=== PATIENT | female | born 1940 | race Caucasian/White ===

== ENCOUNTER 2017-04-01 19:56 | Emergency (ER) | payer MEDICARE ==
[2017-04-01] MEDS ORDERED: Bacitracin Oint 1 GM U/D Packet TOP ONE (20:11)
[2017-04-01 21:14] VITALS: BP 156/96
[2017-04-01] MEDS ORDERED: Coagulation Factor VIIa Recombinant (per MCG) 2 MG Vial IVPUSH ONE (21:20)
--- NOTE | 2017-04-01 21:26 | EDM.PDOC ---
ED HPI GENERAL MEDICAL PROBLEM - General Chief Complaint: Laceration Stated Complaint: FALL VIA [facility] Time Seen by Provider: 04/01/17 20:10 Source of Information: Reports: EMS, Family History Limitations: Reports: Altered Mental Status (Patient has chronic significant dementia) - History of Present Illness INITIAL COMMENTS - FREE TEXT/NARRATIVE: 76-year-old female fell and bumped her head on the floor in the corner of the bathroom at the snf. She has a hematoma with a 3 cm long shallow laceration on the left parietal scalp. No significant loss of consciousness, her daughter who accompanies her says she seems "herself". She is C-collared per protocol which was removed and she does not seem to have neck discomfort. Onset: Sudden Duration: Hour(s): (Within the last hour) Location: Reports: Head Severity: Mild Associated Symptoms: Reports: No Other Symptoms - Related Data Allergies Allergy/AdvReac Type Severity Reaction Status Date / Time No Known Allergies Allergy Verified 04/01/17 20:43 Home Meds: Home Meds Levothyroxine [Sythroid] 100 mcg PO DAILY 09/12/14 [History] Bisacodyl 10 mg RECTAL ASDIRECTED PRN 07/08/16 [History] Magnesium Hydroxide [Milk of Magnesia] 30 ml PO ASDIRECTED PRN 07/08/16 [History ] Mirtazapine [Remeron] 15 mg PO DAILY 07/08/16 [History] Polyethylene Glycol 3350 [Miralax] 17 gm PO DAILY 07/08/16 [History] Fludrocortisone [Florinef] 0.2 mg PO WITHBREAKFAST 04/01/17 [History] Past Medical History Cardiovascular History: Reports: Other (See Below) Other Cardiovascular History: hypotension Gastrointestinal History: Reports: Chronic Constipation Genitourinary History: Reports: UTI, Recurrent [employer] History: Reports: Musculoskeletal History: Reports: Gout Neurological History: Reports: Alzheimers Disease Psychiatric History: Reports: Alzheimers Disease, Dementia, Depression, Eating Disorders Endocrine/Metabolic History: Reports: Hypothyroidism Social & Family History - Family History Family Medical History: Noncontributory - Tobacco Use Smoking Status *Q: Never Smoker Second Hand Smoke Exposure: No - Caffeine Use Caffeine Use: Reports: None - Alcohol Use Days Per Week of Alcohol Use: 0 - Recreational Drug Use Recreational Drug Use: No ED ROS GENERAL - Review of Systems Review Of Systems: See Below Constitutional: Denies: Fever, Chills Respiratory: Denies: Shortness of Breath GI/Abdominal: Denies: Hematochezia, Nausea Neurological: Reports: Other (Advanced dementia makes history difficult) ED EXAM, SKIN/RASH Exam: See Below Exam Limited By: Other (Advanced dementia) General Appearance: Alert, No Apparent Distress Eye Exam: Bilateral Eye: EOMI Head: Other (Patient has a raised 4 cm wide shallow hematoma on the left parietal scalp with an overlying 3 cm fairly shallow laceration. There is some active bleeding and it is into the subcutaneous tissue with slight opening of the cut) Course - Vital Signs Last Recorded V/S: Last Vital Signs Temp 96.1 F 04/01/17 20:48 Pulse 108 H 04/01/17 21:13 Resp 16 04/01/17 21:13 BP 156/96 H 04/01/17 21:13 Pulse Ox 96 04/01/17 21:13 - Orders/Labs/Meds Meds: Medications Discontinued Medications Generic Name Dose Route Start Last Admin Trade Name Meghna PRN Reason Stop Dose Admin Bacitracin 1 dose 04/01/17 20:11 04/01/17 21:14 Bacitracin Oint 1 Gm TOP 04/01/17 20:12 1 dose ONETIME ONE Administration Factor VIIa (Recombinant) 2,000 mcg 04/01/17 21:20 Novoseven Rt IVPUSH 04/01/17 21:21 ONETIME ONE Lidocaine HCl 5 ml 04/01/17 20:11 04/01/17 21:14 Xylocaine-Mpf 1% INJECT 04/01/17 20:12 5 ml ONETIME ONE Administration - Re-Assessments/Exams Free Text/Narrative Re-Assessment/Exam: 04/01/17 21:28 The laceration was cleaned with saline, infiltrated with 1% lidocaine and closed with 3 abdirahman. These can be removed in 6 days. She can be rechecked if she develops any worsening neurologic symptoms. Departure - Departure Time of Disposition: 22:00 Disposition: DC/Tfer to [facility] Condition: Good Clinical Impression: Hematoma of scalp Qualifiers: Encounter type: initial encounter Qualified Code(s): S00.03XA - Contusion of scalp, initial encounter Laceration of scalp Qualifiers: Encounter type: initial encounter Qualified Code(s): S01.01XA - Laceration without foreign body of scalp, initial encounter - Discharge Information Instructions: Laceration Care, Adult, [id number] Referrals: Samuel Iyer MD [Primary Care Provider] - Forms: ED Department Discharge Care Plan Goals: Cold compresses over the hematoma may help swelling. Activity as tolerated and resume regular medications. Abdirahman can be removed in 6 days.
== END 2017-04-01 21:54 ==
LOC: JP.ED 19:56
DX: S01.01XA Laceration without foreign body of scalp, initial encounter (principal); G30.9 Alzheimer's disease, unspecified; E03.9 Hypothyroidism, unspecified; F02.80 Dementia in other diseases classified elsewhere, unspecified severity, without behavioral disturbance, psychotic disturbance, mood disturbance, and anxiety; F32.9 Major depressive disorder, single episode, unspecified; Z79.899 Other long term (current) drug therapy; Z87.440 Personal history of urinary (tract) infections; W01.10XA Fall on same level from slipping, tripping and stumbling with subsequent striking against unspecified object, initial encounter; Y92.002 Bathroom of unspecified non-institutional (private) residence as the place of occurrence of the external cause
CPT/HCPCS: 12002; 99283-25; 99284-25

== ENCOUNTER 2017-04-03 16:28 | Emergency (ER) | payer MEDICARE ==
[2017-04-03] MEDS ORDERED: Lactated Ringers 1,000 ML IV SCH (17:00)
--- NOTE | 2017-04-03 17:03 | EDM.PDOC ---
ED HPI GENERAL MEDICAL PROBLEM - General Chief Complaint: Respiratory Problem Stated Complaint: MEDICAL VIA AMBULANCE Time Seen by Provider: 04/03/17 16:52 Source of Information: Reports: EMS, RN Notes Reviewed History Limitations: Reports: Physical Impairment - History of Present Illness INITIAL COMMENTS - FREE TEXT/NARRATIVE: 76-year-old female presents emergency department today via EMS services, she is a [facility] resident DNR/DNI with limited treatment, earlier this afternoon was given supplement nutritional by [facility] staff felt the have difficulty swallowing concern for possible aspiration, staff did note audible wheezing and rhonchi as well as development of fever later on in the afternoon, subsequently transferred to the emergency department for further evaluation, review systems is unobtainable secondary to severe dementia majority of this history is taken from [facility] records and chart review - Related Data Allergies Allergy/AdvReac Type Severity Reaction Status Date / Time No Known Allergies Allergy Verified 04/03/17 16:46 Home Meds: Home Meds Levothyroxine [Sythroid] 100 mcg PO DAILY 09/12/14 [History] Bisacodyl 10 mg RECTAL ASDIRECTED PRN 07/08/16 [History] Magnesium Hydroxide [Milk of Magnesia] 30 ml PO ASDIRECTED PRN 07/08/16 [History ] Mirtazapine [Remeron] 15 mg PO BEDTIME 07/08/16 [History] Polyethylene Glycol 3350 [Miralax] 17 gm PO DAILY 07/08/16 [History] Fludrocortisone [Florinef] 0.2 mg PO WITHBREAKFAST 04/01/17 [History] Past Medical History Cardiovascular History: Reports: Other (See Below) Other Cardiovascular History: hypotension Gastrointestinal History: Reports: Chronic Constipation Genitourinary History: Reports: UTI, Recurrent [employer] History: Reports: Musculoskeletal History: Reports: Gout Neurological History: Reports: Alzheimers Disease Psychiatric History: Reports: Alzheimers Disease, Dementia, Depression, Eating Disorders Endocrine/Metabolic History: Reports: Hypothyroidism Social & Family History - Family History Family Medical History: Noncontributory - Tobacco Use Smoking Status *Q: Never Smoker Second Hand Smoke Exposure: No - Caffeine Use Caffeine Use: Reports: None - Alcohol Use Days Per Week of Alcohol Use: 0 - Recreational Drug Use Recreational Drug Use: No ED ROS GENERAL - Review of Systems Review Of Systems: Unable To Obtain ED EXAM, GENERAL - Physical Exam Exam: See Below Exam Limited By: Physical Impairment General Appearance: Alert, Lethargic Eye Exam: Bilateral Eye: Normal Inspection Head: Atraumatic, Normocephalic Neck: Normal Inspection, Supple, Non-Tender, Full Range of Motion Respiratory/Chest: No Respiratory Distress, Lungs Clear, Normal Breath Sounds, No Accessory Muscle Use Cardiovascular: Regular Rate, Rhythm, No Murmur GI/Abdominal: Soft, Non-Tender Extremities: Normal Inspection, No Pedal Edema Neurological: Disoriented Skin Exam: Warm, Dry Course - Vital Signs Last Recorded V/S: Last Vital Signs Temp 100.6 F 04/03/17 16:37 Pulse 109 H 04/03/17 18:09 Resp 24 H 04/03/17 18:09 BP 154/98 H 04/03/17 18:09 Pulse Ox 95 04/03/17 18:09 - Orders/Labs/Meds Orders: Active Orders 24 hr Category Date Time Status Vital Signs [RC] Q1H Care 04/03/17 16:57 Active Chest 1V Frontal [CR] Urgent Exams 04/03/17 17:40 Taken CULTURE BLOOD [BC] Urgent Lab 04/03/17 17:21 Received CULTURE BLOOD [BC] Urgent Lab 04/03/17 17:21 Received CULTURE URINE [RM] Urgent Lab 04/03/17 18:27 Ordered Lactated Ringers [Ringers, Lactated] 1,000 ml Med 04/03/17 17:00 Active IV ASDIRECTED Levofloxacin/Dextrose 5%-Water [Levaquin in D5W 500 MG/ Med 04/03/17 18:34 Ordered 100 ML] 500 mg Premix Bag 1 bag IV ONETIME Blood Culture x2 Reflex Set [OM.PC] Urgent Oth 04/03/17 16:57 Ordered Medication Orders Lactated Ringer's (Ringers, Lactated) 1,000 mls @ 500 mls/hr IV ASDIRECTED FINA Last Admin: 04/03/17 17:28 Dose: 500 mls/hr Levofloxacin/Dextrose 500 mg/ (Premix) 100 mls @ 100 mls/hr IV ONETIME ONE Stop: 04/03/17 19:33 Labs: Laboratory Tests 04/03/17 04/03/17 04/03/17 Range/Units 17:21 17:21 17:21 WBC 12.7 H (4.5-11.0) K/uL RBC 4.60 (3.30-5.50) M/uL Hgb 13.2 (12.0-15.0) g/dL Hct 38.8 (36.0-48.0) % MCV 84 (80-98) fL MCH 29 (27-31) pg MCHC 34 (32-36) % Plt Count 303 (150-400) K/uL Neut % (Auto) 77 H (36-66) % Lymph % (Auto) 13 L (24-44) % [place] % (Auto) 9 H (2-6) % Eos % (Auto) 1 L (2-4) % Baso % (Auto) 0 (0-1) % Sodium 140 (140-148) mmol/L Potassium 3.5 L (3.6-5.2) mmol/L Chloride 103 (100-108) mmol/L Carbon Dioxide 28 (21-32) mmol/L Anion Gap 12.5 (5.0-14.0) mmol/L BUN 15 (7-18) mg/dL Creatinine 0.7 (0.6-1.0) mg/dL Est Cr Clr Drug Dosing 61.42 mL/min Estimated GFR (MDRD) > 60 (>60) Glucose 103 (74-106) mg/dL Lactic Acid 1.6 (0.4-2.0) mmol/L Calcium 8.5 (8.5-10.1) mg/dL Total Bilirubin 1.6 H (0.2-1.0) mg/dL AST 21 (15-37) U/L ALT 19 (12-78) U/L Alkaline Phosphatase 124 H D (46-116) U/L C-Reactive Protein 0.97 H (0.0-0.3) mg/dL Total Protein 8.1 (6.4-8.2) g/dL Albumin 3.0 L (3.4-5.0) g/dL Globulin 5.1 H (2.3-3.5) g/dL Albumin/Globulin Ratio 0.6 L (1.2-2.2) Urine Color Urine Appearance Urine pH (4.5-8.0) Ur Specific [place] (1.008-1.030) Urine Protein (NEGATIVE) mg/dL Urine Glucose (UA) (NEGATIVE) mg/dL Urine Ketones (NEGATIVE) mg/dL Urine Occult Blood (NEGATIVE) Urine Nitrite (NEGATIVE) Urine Bilirubin (NEGATIVE) Urine Urobilinogen (NORMAL) mg/dL Ur Leukocyte Esterase (NEGATIVE) Urine RBC (0-5) Urine WBC (0-5) Ur Epithelial Cells Amorphous Sediment Urine Bacteria Urine Mucus 04/03/17 Range/Units 18:00 WBC (4.5-11.0) K/uL RBC (3.30-5.50) M/uL Hgb (12.0-15.0) g/dL Hct (36.0-48.0) % MCV (80-98) fL MCH (27-31) pg MCHC (32-36) % Plt Count (150-400) K/uL Neut % (Auto) (36-66) % Lymph % (Auto) (24-44) % [place] % (Auto) (2-6) % Eos % (Auto) (2-4) % Baso % (Auto) (0-1) % Sodium (140-148) mmol/L Potassium (3.6-5.2) mmol/L Chloride (100-108) mmol/L Carbon Dioxide (21-32) mmol/L Anion Gap (5.0-14.0) mmol/L BUN (7-18) mg/dL Creatinine (0.6-1.0) mg/dL Est Cr Clr Drug Dosing mL/min Estimated GFR (MDRD) (>60) Glucose (74-106) mg/dL Lactic Acid (0.4-2.0) mmol/L Calcium (8.5-10.1) mg/dL Total Bilirubin (0.2-1.0) mg/dL AST (15-37) U/L ALT (12-78) U/L Alkaline Phosphatase (46-116) U/L C-Reactive Protein (0.0-0.3) mg/dL Total Protein (6.4-8.2) g/dL Albumin (3.4-5.0) g/dL Globulin (2.3-3.5) g/dL Albumin/Globulin Ratio (1.2-2.2) Urine Color Yellow Urine Appearance Cloudy Urine pH 5.0 (4.5-8.0) Ur Specific [place] 1.020 (1.008-1.030) Urine Protein Negative (NEGATIVE) mg/dL Urine Glucose (UA) Normal (NEGATIVE) mg/dL Urine Ketones Negative (NEGATIVE) mg/dL Urine Occult Blood Moderate (NEGATIVE) Urine Nitrite Negative (NEGATIVE) Urine Bilirubin Negative (NEGATIVE) Urine Urobilinogen Normal (NORMAL) mg/dL Ur Leukocyte Esterase Moderate (NEGATIVE) Urine RBC 5-10 H (0-5) Urine WBC 20-30 H (0-5) Ur Epithelial Cells Few Amorphous Sediment Few Urine Bacteria Moderate Urine Mucus Few Meds: Medications Generic Name Dose Route Start Last Admin Trade Name Freq PRN Reason Stop Dose Admin Lactated Ringer's 1,000 mls @ 500 mls/hr 04/03/17 17:00 04/03/17 17:28 Ringers, Lactated IV 500 mls/hr ASDIRECTED FINA Administration Levofloxacin/Dextrose 500 mg/ 100 mls @ 100 mls/hr 04/03/17 18:34 Premix IV 04/03/17 19:33 ONETIME ONE Departure - Departure Time of Disposition: 18:40 Disposition: Home, Self-Care 01 Condition: Poor Clinical Impression: Urinary tract infection Qualifiers: Urinary tract infection type: acute cystitis Hematuria presence: with hematuria Qualified Code(s): N30.01 - Acute cystitis with hematuria - Discharge Information Referrals: PCP,None [Primary Care Provider] - Forms: ED Department Discharge Additional Instructions: Take full course of antibiotics, Please followup with your primary care provider in 3-5 days if not better, please call return to the emergency department with worsening of symptoms. - My Orders Last 24 Hours: My Active Orders 04/03/17 16:57 Vital Signs [RC] Q1H Blood Culture x2 Reflex Set [OM.PC] Urgent 04/03/17 17:00 Lactated Ringers [Ringers, Lactated] 1,000 ml IV ASDIRECTED 04/03/17 17:21 CULTURE BLOOD [BC] Urgent CULTURE BLOOD [BC] Urgent 04/03/17 17:40 Chest 1V Frontal [CR] Urgent 04/03/17 18:27 CULTURE URINE [RM] Urgent 04/03/17 18:34 Levofloxacin/Dextrose 5%-Water [Levaquin in D5W 500 MG/100 ML] 500 mg Premix Bag 1 bag IV ONETIME - Assessment/Plan Last 24 Hours: My Active Orders 04/03/17 16:57 Vital Signs [RC] Q1H Blood Culture x2 Reflex Set [OM.PC] Urgent 04/03/17 17:00 Lactated Ringers [Ringers, Lactated] 1,000 ml IV ASDIRECTED 04/03/17 17:21 CULTURE BLOOD [BC] Urgent CULTURE BLOOD [BC] Urgent 04/03/17 17:40 Chest 1V Frontal [CR] Urgent 04/03/17 18:27 CULTURE URINE [RM] Urgent 04/03/17 18:34 Levofloxacin/Dextrose 5%-Water [Levaquin in D5W 500 MG/100 ML] 500 mg Premix Bag 1 bag IV ONETIME Plan: Assessment Acuity = acute Site and laterality = urinary tract infection comp came the patient with Alzheimer's dementia and [facility] resident Etiology = suspicious for bacterial cause Manifestations = fever Location of injury = Home Lab values = WBC elevated at 12.7 consistent leukocytosis potassium low 3.5 consistent hypokalemia total bilirubin elevated 1.6 consistent with hyperbilirubinemia albumin low at 3.0 consistent with hypoalbuminemia urinalysis reveals 5-10 rbc's consists with a hematuria WBCs 20-30 consistent with pyuria cultures pending chest x-ray I did review films myself I cannot appreciate any acute process, the official read from radiology is pending Plan I did review lab work with the family gave the option for hospital admission versus return to the [facility], they felt the best care for her would be return to the [facility] she was recently on Rocephin for possible aspiration and treated with levofloxacin back in the first part of February I elected to provide one IV dose of levofloxacin while in the emergency department followed by 7 day course of oral antibiotic, I'll have her follow-up with your primary care in the next 3-5 days for reevaluation Family was in agreement with the plan all questions were answered, they were instructed to return to the emergency department or call for worsening symptoms. This note was dictated using [employer] voice recognition software please call with any questions.
[2017-04-03] MEDS ORDERED: Levofloxacin/Dextrose 5%-Water 500 MG in Premix Bag 1 BAG IV ONE (18:34)
[2017-04-03 22:43] VITALS: BP 146/83
--- NOTE | 2017-04-04 09:02 | CR ---
Chest 1V Frontal HISTORY: fever COMPARISON: None FINDINGS: Portable chest, 1750 hours. Possible mild linear atelectasis or scarring retrocardiac region left lower lobe. Lungs appear otherw ise clear and normally aerated. Cardiomediastinal silhouette is within normal limits. There is mild a therosclerotic calcification in the aortic arch. No vascular redistribution or pleural fluid can be s een. Bony structures and soft tissues are unremarkable other than possible osteopenia. IMPRESSION: No acute cardiopulmonary disease is identified. Possible mild linear atelectasis or infiltrate retroc ardiac region left lower lobe.
== END 2017-04-03 20:34 | disposition home or self-care (01) ==
LOC: JP.ED 16:28
DX: N30.01 Acute cystitis with hematuria (principal); G30.9 Alzheimer's disease, unspecified; F02.80 Dementia in other diseases classified elsewhere, unspecified severity, without behavioral disturbance, psychotic disturbance, mood disturbance, and anxiety; E03.9 Hypothyroidism, unspecified; F32.9 Major depressive disorder, single episode, unspecified; Z79.899 Other long term (current) drug therapy
CPT/HCPCS: 36415; 71010; 80053; 81001; 83605; 85025; 86140; 87040; 87086; 96361; 96365; 99285; J1956; J7120; 99284